=== PATIENT | female | born 2000 | race Caucasian/White ===

== ENCOUNTER 2019-01-12 12:42 | Emergency (ER) | payer OTHER ==
[~2019-01-12] VITALS: Ht 157.5 cm; Wt 81.7 kg
[2019-01-12 13:15] LABS: URINE BILIRUBIN NEGATIVE (Negative); URINE BLOOD 1+ (Negative); URINE CLARITY CLEAR; URINE COLOR YELLOW; URINE GLUCOSE-RANDOM NEGATIVE (Negative); URINE KETONES NEGATIVE (Negative); URINE LEUKOCYTES-REFLEX NEGATIVE (Negative); URINE NITRITE-REFLEX NEGATIVE (Negative); URINE PROTEIN NEGATIVE (Negative); URINE SPECIFIC GRAVITY >= 1.030 (1.005-1.030); URINE UROBILINOGEN 0.2 E.U./dl (0.2-1.0)
[2019-01-12 13:29] LABS: SQUAMOUS >10 Many /LPF (0-3)
[2019-01-12 13:30] LABS: BACTERIA-REFLEX 1-9 Few /HPF (None Seen); CASTS None Seen /LPF (None Seen); CRYSTALS None Seen /LPF (None Seen); MUCUS >6 Heavy strn/LPF (None Seen); URINE RBC 0-2 Rare /HPF (0-2); URINE WBC-REFLEX None Seen /HPF (0-5)
[2019-01-12 13:51] LABS: ABSOLUTE EOSINOPHILS 0.1 thou/uL (0.0-0.7); ABSOLUTE LYMPHOCYTES 2.1 thou/uL (0.8-5.3); ABSOLUTE MONOCYTES 0.4 thou/uL (0.0-1.2); ABSOLUTE NEUTROPHILS 4.1 thou/uL (1.6-8.1); BASOPHILS 0.2 %; EOSINOPHILS 1.9 %; HEMATOCRIT 37.7 % (37.0-47.0); HEMOGLOBIN 12.4 gm/dL (12.0-15.0); LYMPHOCYTES 30.5 %; MCH 26.5 pg (26.0-34.0); MCV 80.3 fL (80.0-100.0); MONOCYTES 6.6 %; MPV 8.1 fl. (7.2-11.1); NUCLEATED RBCS 0 /100WBC; PLATELET COUNT* 283 thou/uL (150-400); POLYS 60.8 %; RBC 4.69 mil/uL (4.20-5.00); RDW-CV 16.4 % (10.5-14.5); WBC 6.8 thou/uL (4.0-11.0)
[2019-01-12 14:40] VITALS: BP 137/80
== END 2019-01-12 14:41 | disposition home or self-care (01) ==
LOC: M.ERS 12:42
PROVIDERS: Nurse Practitioner Psychiatric/Mental Health
DX: N93.9 Abnormal uterine and vaginal bleeding, unspecified (principal)